=== PATIENT | male | born 1970 | race Caucasian/White ===

== ENCOUNTER 2025-03-11 05:18 | Emergency (ER) | payer BC ==
[2025-03-11 05:33] VITALS: BP 143/93; PULSE 74; RESP 20; TEMP 97.5; BMI 25.1
[2025-03-11] MEDS: KETOROLAC TROMETHAMINE 15 MG/ML VIAL IM ONE (05:58)
[2025-03-11] MEDS: IBUPROFEN 600 MG TABLET (FP) PO ONE (05:58)
[2025-03-11 15:03] LABS: HCV DIAGNOSTIC IN-HOUSE W/RFLX NON-REACTIVE (NONREACTIVE)
[2025-03-11 15:04] LABS: HIV INTERPRETATION NEGATIVE (NEGATIVE)
== END 2025-03-11 06:52 | disposition home or self-care (01) ==
LOC: JER 05:18
DX: M25.511 Pain in right shoulder (principal)
CPT/HCPCS: 36415; 73030-TC-RT-FY; 86803; 87389; 99284-25